=== PATIENT | female | born 1945 | race Caucasian/White ===

== ENCOUNTER → 2017-05-10 | Outpatient (CLI) | payer MEDICARE, OTHER ==
[~2017-05-10] MED LIST: AMLO2.5T PO; BISO1TAB51 PO; CHOL100011 PO; EZET10TA18 PO; FOSI20TA PO; HYDR25TA6 PO; L-THYROXINE PO; OMEG1CAP6 PO; POTA20TA6 PO; WARF2.5T73 PO; WARF5TAB7 PO
== END | disposition home or self-care (01) ==
LOC: RAD 09:43
PROVIDERS: ATTEND Internal Medicine Cardiovascular Disease
DX: R06.00 Dyspnea, unspecified (principal); I26.09 Other pulmonary embolism with acute cor pulmonale; J98.4 Other disorders of lung
CPT/HCPCS: 71010; 78582; A9540; A9558

== ENCOUNTER 2017-05-12 09:56 | Day surgery (SDC) | payer MEDICARE, OTHER ==
[2017-05-10 12:22] VITALS: BP 180/80
[2017-05-10 12:25] LABS: HEMATOCRIT 41.9 % (34.6-47.8); HEMOGLOBIN 13.9 g/dL (11.7-16.4); WHITE BLOOD COUNT 8.6 x10^3/uL (3.4-10)
[2017-05-10 12:40] LABS: BLOOD UREA NITROGEN 17 mg/dL (7-18)
[~2017-05-12] VITALS: Ht 167.6 cm; Wt 110.0 kg
[2017-05-12] MEDS ORDERED: SODIUM CHLORIDE 0.9% 1,000 ML IV ONE (10:13)
[2017-05-12] MEDS ORDERED: DIPHENHYDRAMINE 50 MG/ML, 1ML IVPush PRN (10:30)
[2017-05-12] MEDS ORDERED: FENTANYL PF 100 MCG/2ML ONE (10:37)
[2017-05-12] MEDS ORDERED: MIDAZOLAM 1 MG/ML, 5ML ONE (10:37)
[2017-05-12] MEDS ORDERED: LIDOCAINE 2%, 20ML ONE (10:38)
[2017-05-12] MEDS ORDERED: HEPARIN 1,000 UNITS/ML, 10ML ONE (10:38)
[2017-05-12] MEDS ORDERED: NITROGLYCERIN 5 MG/ML, 10ML ONE (10:38)
[2017-05-12] MEDS ORDERED: VERAPAMIL 2.5 MG/ML, 2ML ONE (10:38)
[2017-05-12] MEDS ORDERED: DIPHENHYDRAMINE 50 MG/ML, 1ML ONE (10:41)
[2017-05-12] MEDS ORDERED: SODIUM CHLORIDE 0.9% IV ONE (12:30)
[2017-05-12] MEDS ORDERED: ADENOSINE IV ONE (12:30)
[2017-05-12] MEDS ORDERED: SODIUM CHLORIDE 0.9% 1,000 ML IV SCH (13:09)
[2017-05-12] MEDS ORDERED: LABETALOL 5MG/ML, 20ML ONE (13:45)
== END 2017-05-12 16:40 ==
LOC: CACL 09:56
PROVIDERS: ATTEND Internal Medicine Cardiovascular Disease
DX: I27.21 Secondary pulmonary arterial hypertension (principal); I26.09 Other pulmonary embolism with acute cor pulmonale; I48.1 Persistent atrial fibrillation; I36.1 Nonrheumatic tricuspid (valve) insufficiency; Z79.01 Long term (current) use of anticoagulants; E03.9 Hypothyroidism, unspecified; E78.5 Hyperlipidemia, unspecified
CPT/HCPCS: 36415; 80048; 83880; 85025; 85610; 85730; 93460; 93463; 99156; 99157; C1769; C1894; J1200; J2250; J3010; J3490; Q9967; J1644

== ENCOUNTER → 2018-01-17 | Outpatient (CLI) | payer MEDICARE, OTHER ==
[~2018-01-17] MED LIST changes: +WARF-36 PO; -WARF5TAB7 PO
== END | disposition home or self-care (01) ==
LOC: CVU 12:55
PROVIDERS: ATTEND Internal Medicine Cardiovascular Disease
DX: I08.1 Rheumatic disorders of both mitral and tricuspid valves (principal); I11.9 Hypertensive heart disease without heart failure
CPT/HCPCS: 93306

== ENCOUNTER → 2018-02-01 | Outpatient (CLI) | payer MEDICARE, OTHER | END | disposition home or self-care (01) | LOC: CFH 10:43 | PROVIDERS: ATTEND Internal Medicine | DX: M65.811 Other synovitis and tenosynovitis, right shoulder (principal); M75.101 Unspecified rotator cuff tear or rupture of right shoulder, not specified as traumatic; S42.294A Other nondisplaced fracture of upper end of right humerus, initial encounter for closed fracture; X58.XXXA Exposure to other specified factors, initial encounter; Y93.89 Activity, other specified; Y92.89 Other specified places as the place of occurrence of the external cause; Y99.8 Other external cause status ==

== ENCOUNTER → 2018-11-30 | Outpatient (CLI) | payer MEDICARE, OTHER ==
[~2018-11-30] MED LIST changes: +ACET-1600 PO; -AMLO2.5T PO; +AMLO2.5T5 PO; +DEXT237L PO; -FOSI20TA PO; +FOSI20TA7 PO; +LEVO50TA5 PO; +SILD20TA PO; +WARF2.5T32 PO; -WARF2.5T73 PO; +[UNRECOGNIZED DRUG - OTHER] PO
[2018-11-30 15:34] LABS: BASOPHILS # (AUTO) 0.08 x10^3/uL (0-0.1); BASOPHILS % (AUTO) 1 % (0-1); EOSINOPHILS # (AUTO) 0.17 x10^3/uL (0-0.4); EOSINOPHILS % (AUTO) 2 % (1-7); LYMPHOCYTES # (AUTO) 2.09 x10^3/uL (1-3.4); LYMPHOCYTES % (AUTO) 27 % (22-44); MD NO; MEAN CORPUSCULAR HEMOGLOBIN 28.3 pg (27.0-34.8); MEAN CORPUSCULAR HGB CONC 32.3 g/dL (32.4-35.8); MEAN CORPUSCULAR VOLUME 87.4 fL (80-100); MEAN PLATELET VOLUME 8.4 fL (7.4-10.4); MONOCYTES # (AUTO) 0.67 x10^3/uL (0.2-0.8); MONOCYTES % (AUTO) 9 % (2-9); NEUTROPHILS # (AUTO) 4.66 x10^3/uL (1.8-6.8); NEUTROPHILS % (AUTO) 61 % (42-75); PLATELET COUNT 292 x10^3/uL (130-400); RED BLOOD COUNT 4.88 x10^6/uL (3.82-5.3); RED CELL DISTRIBUTION WIDTH 15.4 % (9.6-15.2)
[2018-11-30 15:40] LABS: ALANINE AMINOTRANSFERASE 24 U/L (12-78); ANION GAP 6 mmol/L (5-15); CALCIUM 9.6 mg/dL (8.5-10.1); CHLORIDE 101 mmol/L (98-107)
[2018-11-30 15:42] LABS: ALKALINE PHOSPHATASE 94 U/L (45-117); BILIRUBIN,TOTAL 1.2 mg/dL (0.2-1.0); TOTAL PROTEIN 7.9 g/dL (6.4-8.2)
[2018-11-30 16:09] LABS: INTERNATIONAL NORMALIZED RATIO 2.99 (0.93-1.1); PROTHROMBIN TIME 30.1 Seconds (9.6-11.5)
== END | disposition home or self-care (01) ==
LOC: STAR 14:14
PROVIDERS: ATTEND Obstetrics & Gynecology Female Pelvic Medicine and Reconstructive Surgery
DX: Z01.818 Encounter for other preprocedural examination (principal); N95.0 Postmenopausal bleeding; N39.3 Stress incontinence (female) (male); N81.10 Cystocele, unspecified; I48.91 Unspecified atrial fibrillation
CPT/HCPCS: 36415; 80053; 85025; 85610; 85730; 93005

== ENCOUNTER 2018-12-02 19:50 | Inpatient (IN) | payer MEDICARE, OTHER ==
[~2018-12-02] VITALS: Ht 165.1 cm; Wt 114.9 kg
[~2018-12-02 19:50] MED LIST changes: -LEVO50TA5 PO
--- NOTE | 2018-12-02 20:23 | NUR ---
Patient in room, comfortable. Assumed patient care. Patient speaking with family member, no signs of distress, reports no difficulty breathing, pain or distress of any sort. Call light at bedside, no needs at this time.
[2018-12-02] MEDS ORDERED: LEVO50TA5 PO (20:28)
[2018-12-02 21:14] LABS: ANION GAP 7 mmol/L (5-15); CALCIUM 9.2 mg/dL (8.5-10.1); CHLORIDE 103 mmol/L (98-107); CREATININE 1.05 mg/dL (0.55-1.02)
[2018-12-02] MEDS ORDERED: POTASSIUM CHLORIDE 40 MEQ in SODIUM CHLORIDE 0.9% 500 ML IV ONE (21:30)
--- NOTE | 2018-12-02 21:44 | NUR ---
PRECEPTOR NOTE: POTASSIUM 2.8. IV IN PROGRESS. PT ON CARDICAC MONITOR. PT TO BE AMDITTED PER DR. SANDY.
[2018-12-02] MEDS ORDERED: POTASSIUM CHLORIDE 20 MEQ TAB.ER.PRT PO ONE (22:00)
[2018-12-02] MEDS ORDERED: POTASSIUM CHLORIDE 20 MEQ TAB.ER.PRT ONE (22:13)
[2018-12-03] MEDS ORDERED: [UNRECOGNIZED DRUG - OTHER] PO SCH (01:00)
[2018-12-03] MEDS ORDERED: DOCUSATE 100 MG CAPSULE PO PRN (01:00)
[2018-12-03] MEDS ORDERED: ACETAMINOPHEN 325 MG TABLET PO PRN (01:00)
[2018-12-03] MEDS ORDERED: POTASSIUM CHLORIDE 20 MEQ TAB.ER.PRT PO ONE (01:00)
[2018-12-03] MEDS ORDERED: [UNRECOGNIZED DRUG - OTHER] MC SCH (01:00)
[2018-12-03] MEDS ORDERED: DEXTROMETHORPHAN HB PO SCH (01:00)
[2018-12-03] MEDS ORDERED: DOXYLAMINE PO SCH (01:00)
[2018-12-03] MEDS ORDERED: DIPHENHYDRAMINE 25 MG CAPSULE PO PRN (01:00)
[2018-12-03] MEDS ORDERED: BISACODYL 10 MG SUPP PR PRN (01:00)
[2018-12-03 01:49] VITALS: BP 134/79
[2018-12-03] MEDS: SILDENAFIL 20 MG TABLET PO SCH ×4 (01:52→20:31)
[2018-12-03 03:47] LABS: INTERNATIONAL NORMALIZED RATIO 1.79 (0.93-1.1); PROTHROMBIN TIME 18.4 Seconds (9.6-11.5)
[2018-12-03 04:48] LABS: ANION GAP 9 mmol/L (5-15); CALCIUM 8.7 mg/dL (8.5-10.1); CHLORIDE 105 mmol/L (98-107); CREATININE 0.82 mg/dL (0.55-1.02)
[2018-12-03 07:05] VITALS: BP 127/79
[2018-12-03] MEDS ORDERED: MAGNESIUM SULFATE PMX 2GM/50ML 50 ML IV ONE (08:30)
[2018-12-03] MEDS: POTASSIUM CHLORIDE 20 MEQ TAB.ER.PRT PO SCH (08:46)
[2018-12-03] MEDS: HYDROCHLOROTHIAZIDE 12.5 MG CAPSULE PO SCH (08:46)
[2018-12-03] MEDS: EZETIMIBE 10 MG TABLET PO SCH (08:47)
[2018-12-03] MEDS: TORSEMIDE 20 MG TABLET PO SCH (08:47)
[2018-12-03] MEDS: LEVOTHYROXINE 50 MCG TABLET PO SCH (08:47)
[2018-12-03] MEDS: CHOLECALCIFEROL 1,000 UNIT TABLET PO SCH (08:48)
[2018-12-03] MEDS: LISINOPRIL 20 MG TABLET PO SCH (09:00)
[2018-12-03] MEDS ORDERED: TORSEMIDE 20 MG TABLET PO SCH (09:00)
[2018-12-03] MEDS: OMEGA-3/FISH OIL CAPSULE PO SCH (09:00)
[2018-12-03] MEDS: ATENOLOL 100 MG TABLET PO SCH (09:00)
[2018-12-03 12:06] VITALS: BP 157/78
[2018-12-03] MEDS ORDERED: POTASSIUM CHLORIDE 20 MEQ in SODIUM CHLORIDE 0.9% 250 ML IV ONE (12:30)
[2018-12-03] MEDS ORDERED: POTASSIUM CHLORIDE 40 MEQ in SODIUM CHLORIDE 0.9% 1,000 ML IV ONE (16:30)
[2018-12-03] MEDS ORDERED: WARFARIN 5 MG TABLET PO-COUM SCH (18:00)
[2018-12-03 19:55] VITALS: BP 133/68
[2018-12-04 03:46] VITALS: BP 142/78
[2018-12-04 05:19] LABS: BASOPHILS # (AUTO) 0.02 x10^3/uL (0-0.1); BASOPHILS % (AUTO) 0 % (0-1); EOSINOPHILS # (AUTO) 0.26 x10^3/uL (0-0.4); EOSINOPHILS % (AUTO) 4 % (1-7); LYMPHOCYTES # (AUTO) 2.19 x10^3/uL (1-3.4); LYMPHOCYTES % (AUTO) 30 % (22-44); MD NO; MEAN CORPUSCULAR HEMOGLOBIN 28.9 pg (27.0-34.8); MEAN CORPUSCULAR HGB CONC 32.8 g/dL (32.4-35.8); MEAN CORPUSCULAR VOLUME 88.1 fL (80-100); MONOCYTES # (AUTO) 0.56 x10^3/uL (0.2-0.8); MONOCYTES % (AUTO) 8 % (2-9); NEUTROPHILS # (AUTO) 4.27 x10^3/uL (1.8-6.8); NEUTROPHILS % (AUTO) 58 % (42-75); PLATELET COUNT 240 x10^3/uL (130-400); RED BLOOD COUNT 4.22 x10^6/uL (3.82-5.3); RED CELL DISTRIBUTION WIDTH 15.9 % (9.6-15.2)
[2018-12-04 05:24] LABS: INTERNATIONAL NORMALIZED RATIO 1.44 (0.93-1.1); PROTHROMBIN TIME 14.9 Seconds (9.6-11.5)
[2018-12-04 05:30] LABS: ANION GAP 6 mmol/L (5-15); CALCIUM 8.5 mg/dL (8.5-10.1); CHLORIDE 110 mmol/L (98-107); CREATININE 0.61 mg/dL (0.55-1.02)
[2018-12-04 06:54] VITALS: BP 130/73
[2018-12-04] MEDS: LISINOPRIL 20 MG TABLET PO SCH (09:00)
[2018-12-04] MEDS: ATENOLOL 100 MG TABLET PO SCH (09:14)
[2018-12-04] MEDS: CHOLECALCIFEROL 1,000 UNIT TABLET PO SCH (09:14)
[2018-12-04] MEDS: POTASSIUM CHLORIDE 20 MEQ TAB.ER.PRT PO SCH (09:14)
[2018-12-04] MEDS: LEVOTHYROXINE 50 MCG TABLET PO SCH (09:15)
[2018-12-04] MEDS: OMEGA-3/FISH OIL CAPSULE PO SCH (09:15)
[2018-12-04] MEDS: EZETIMIBE 10 MG TABLET PO SCH (09:15)
[2018-12-04] MEDS: TORSEMIDE 20 MG TABLET PO SCH (09:15)
[2018-12-04] MEDS: SILDENAFIL 20 MG TABLET PO SCH (09:15)
[2018-12-04] MEDS: HYDROCHLOROTHIAZIDE 12.5 MG CAPSULE PO SCH (09:15)
== END 2018-12-04 13:06 | disposition home or self-care (01) | DRG 641 ==
LOC: ED 21:57 → EDIP 22:22 → 4WST 22:39
PROVIDERS: ADMIT Internal Medicine; ATTEND Internal Medicine
DX: E87.6 Hypokalemia (principal); I48.1 Persistent atrial fibrillation; E03.9 Hypothyroidism, unspecified; E78.5 Hyperlipidemia, unspecified; I10 Essential (primary) hypertension; I27.20 Pulmonary hypertension, unspecified; N85.00 Endometrial hyperplasia, unspecified; N95.0 Postmenopausal bleeding; T50.2X5A Adverse effect of carbonic-anhydrase inhibitors, benzothiadiazides and other diuretics, initial encounter; Y92.89 Other specified places as the place of occurrence of the external cause; Z79.01 Long term (current) use of anticoagulants; Z81.1 Family history of alcohol abuse and dependence; Z82.49 Family history of ischemic heart disease and other diseases of the circulatory system; Z83.3 Family history of diabetes mellitus; Z90.710 Acquired absence of both cervix and uterus; Z79.899 Other long term (current) drug therapy
CPT/HCPCS: 36415; 80048; 83735; 84100; 84132; 84443; 85025; 85610; 93005; 96374; G0378; J3480; J3475; J7030; J7040; J7050

== ENCOUNTER → 2019-10-18 | Outpatient (CLI) | payer MEDICARE, OTHER ==
[~2019-10-18] MED LIST changes: -EZET10TA18 PO; +EZET10TA70 PO; +LEVO50TA5 PO; +TORS10TA PO
== END | disposition home or self-care (01) ==
LOC: CFH 09:42
PROVIDERS: ATTEND Internal Medicine Cardiovascular Disease
DX: I08.8 Other rheumatic multiple valve diseases (principal); I10 Essential (primary) hypertension; E78.5 Hyperlipidemia, unspecified; I48.91 Unspecified atrial fibrillation
CPT/HCPCS: 93306

== ENCOUNTER 2019-11-27 16:02 | Outpatient (CLI) | payer MEDICARE, OTHER | END 2019-11-27 23:59 | disposition home or self-care (01) | LOC: CARD 16:02 | PROVIDERS: ATTEND Internal Medicine Cardiovascular Disease | DX: I27.0 Primary pulmonary hypertension (principal) | CPT/HCPCS: 94060; 94726; 94729 ==

== ENCOUNTER 2019-12-12 09:34 | Day surgery (SDC) | payer MEDICARE, OTHER ==
[~2019-12-12] VITALS: Ht 167.6 cm; Wt 102.0 kg
[2019-12-12] MEDS ORDERED: DIPHENHYDRAMINE 50 MG/ML, 1ML IVPush ONE (10:00)
[2019-12-12] MEDS ORDERED: BISO1TAB51 PO (10:09)
[2019-12-12] MEDS ORDERED: DABI150C PO (10:09)
[2019-12-12] MEDS ORDERED: PLEASE ENTER HEIGHT AND WEIGHT MC SCH (10:11)
[2019-12-12 10:43] LABS: BASOPHILS # (AUTO) 0.03 x10^3/uL (0-0.1); BASOPHILS % (AUTO) 1 % (0-1); EOSINOPHILS # (AUTO) 0.09 x10^3/uL (0-0.4); EOSINOPHILS % (AUTO) 2 % (1-7); LYMPHOCYTES # (AUTO) 1.51 x10^3/uL (1-3.4); LYMPHOCYTES % (AUTO) 26 % (22-44); MD NO; MEAN CORPUSCULAR HEMOGLOBIN 28.2 pg (27.0-34.8); MEAN CORPUSCULAR HGB CONC 32.4 g/dL (32.4-35.8); MEAN CORPUSCULAR VOLUME 86.9 fL (80-100); MEAN PLATELET VOLUME 8.4 fL (7.4-10.4); MONOCYTES # (AUTO) 0.49 x10^3/uL (0.2-0.8); MONOCYTES % (AUTO) 8 % (2-9); NEUTROPHILS # (AUTO) 3.78 x10^3/uL (1.8-6.8); NEUTROPHILS % (AUTO) 64 % (42-75); PLATELET COUNT 256 x10^3/uL (130-400); RED BLOOD COUNT 4.72 x10^6/uL (3.82-5.3); RED CELL DISTRIBUTION WIDTH 15.2 % (9.6-15.2)
[2019-12-12 10:54] LABS: ANION GAP 4 mmol/L (5-15); CALCIUM 9.5 mg/dL (8.5-10.1); CHLORIDE 109 mmol/L (98-107); CREATININE 0.81 mg/dL (0.55-1.02)
[2019-12-12] MEDS ORDERED: DIPHENHYDRAMINE 50 MG/ML, 1ML ONE (11:04)
[2019-12-12] MEDS ORDERED: VERAPAMIL 2.5 MG/ML, 2ML ONE (11:18)
[2019-12-12] MEDS ORDERED: HEPARIN 1,000 UNITS/ML, 10ML ONE (11:18)
[2019-12-12] MEDS ORDERED: FENTANYL PF 100 MCG/2ML ONE (11:18)
[2019-12-12] MEDS ORDERED: MIDAZOLAM 1 MG/ML, 2ML ONE (11:18)
[2019-12-12] MEDS ORDERED: LIDOCAINE-MPF 1%, 5ML ONE (11:18)
[2019-12-12] MEDS ORDERED: POTA10CA PO (12:32)
[2019-12-12] MEDS ORDERED: SPIR50TA PO (12:37)
== END 2019-12-12 13:57 | disposition home or self-care (01) ==
LOC: CACL 09:34
PROVIDERS: ATTEND Internal Medicine Cardiovascular Disease
DX: I27.9 Pulmonary heart disease, unspecified (principal); I34.0 Nonrheumatic mitral (valve) insufficiency; I48.20 Chronic atrial fibrillation, unspecified; I10 Essential (primary) hypertension; E03.9 Hypothyroidism, unspecified; E66.9 Obesity, unspecified; M19.90 Unspecified osteoarthritis, unspecified site; E11.9 Type 2 diabetes mellitus without complications; E78.2 Mixed hyperlipidemia; Z79.899 Other long term (current) drug therapy; Z86.711 Personal history of pulmonary embolism; Z79.01 Long term (current) use of anticoagulants; Z72.89 Other problems related to lifestyle; Z82.49 Family history of ischemic heart disease and other diseases of the circulatory system; Z83.3 Family history of diabetes mellitus; Z68.36 Body mass index [BMI] 36.0-36.9, adult
CPT/HCPCS: 36415; 80048; 83880; 85025; 93451; 99156; 99157; C1769; C1894; J1200; J1644; J2250; J3010

== ENCOUNTER → 2020-08-26 | Outpatient (CLI) | payer MEDICARE, OTHER ==
[~2020-08-26] MED LIST changes: +DABI150C PO; +POTA10CA PO; +SPIR50TA PO
== END | disposition home or self-care (01) ==
LOC: CFH 14:31
PROVIDERS: ATTEND Internal Medicine Cardiovascular Disease
DX: I08.8 Other rheumatic multiple valve diseases (principal); I10 Essential (primary) hypertension; E78.5 Hyperlipidemia, unspecified; Z79.01 Long term (current) use of anticoagulants
CPT/HCPCS: 93306